=== PATIENT | female | born 1970 | race Caucasian/White ===

== ENCOUNTER 2018-11-10 17:25 | Inpatient (IN) ==
[2018-11-10] MEDS ORDERED: Ipratropium/Albuterol Neb 3 ML IH ONE ×2 (17:43→22:15)
--- NOTE | 2018-11-10 17:47 | Emergency Department Note ---
Disposition Clinical Impression: Urinary tract infection Qualifiers: Urinary tract infection type: acute cystitis Hematuria presence: without hematuria Qualified Code(s): N30.00 - Acute cystitis without hematuria Disposition: Admitted As Inpatient Condition: Good Referrals: Jenna Nettles MD [Primary Care Provider] - Forms: ED Satisfaction Letter, Work/School Release Time of Disposition: 19:55 General Adult HPI - General Chief complaint: ED General Medical Stated complaint: Low blood pressure Time Seen by Provider: 11/10/18 17:40 Source: EMS, other (caregiver) Mode of arrival: EMS Limitations: no limitations Nursing Notes Reviewed: Yes Vital Signs Reviewed: Yes - History of Present Illness HPI Narrative: Female patient with a history of several posterior and MRDD who lives at a longterm presenting to the emergency department from urgent care by EMS for low blood pressure. EMS is unaware why she was taken to urgent care.. It is not obstructive bedside. She states that the patient was at her daycare facility doing her normal job's and noted that she was a little more wobbly than normal is how she put it. They checked her blood pressure was found to be low but she is unaware of the number city to urgent care. The caregiver denies any recent illnesses for the patient. She denies any coughs cold or congestion. She denies any fevers. She states that she does frequently gets ear infections however. Pain Scale: 0 - Related Data Home Medications Medication Instructions Recorded Confirmed Acetaminophen [Tylenol] 650 mg PO Q6HR PRN 08/04/18 11/10/18 Albuterol Neb [Proventil Neb] 2.5 mg IH Q4HR PRN 08/04/18 11/10/18 Alendronate Sodium [Fosamax] 70 mg PO GONZALEZ 08/04/18 11/10/18 Ascorbate Calcium [Vitamin C] 500 mg PO DAILY 08/04/18 11/10/18 Calcium Carbonate/Vitamin D3 1 tab PO BID 08/04/18 11/10/18 [Oyster Shell 250 mg + Vit D Tb] Escitalopram [Lexapro] 10 mg PO DAILY 08/04/18 11/10/18 Ferrous Sulfate [Iron] 325 mg PO TID 08/04/18 11/10/18 Ibuprofen [Motrin] 400 mg PO Q4HR PRN 08/04/18 11/10/18 LORazepam [Ativan] 0.5 mg PO DAILY 08/04/18 11/10/18 Loperamide HCl [Anti-Diarrheal] 2 mg PO PRN PRN 08/04/18 11/10/18 Loratadine [Allergy Relief] 10 mg PO DAILY 08/04/18 11/10/18 Mag Hydrox/Al Hydrox/Simeth 30 ml PO Q6HR PRN 08/04/18 11/10/18 [Maalox] Medroxyprogesterone Acetate 150 mg IM [id number] 08/04/18 11/10/18 [Depo-Provera] Allergies Allergy/AdvReac Type Severity Reaction Status Date / Time clindamycin Allergy Hives Verified 11/10/18 16:46 Review of Systems: As Per HPI Limitations: ROS unobtainable due to patients medical condition (animal care giver was able to supply what is listed in the HPI) Past Medical History - Past Medical History Attestation: Yes The following information was validated with the patient. Source: patient Medical history: Reports: non-contributory, other Surgical history: Reports: no surgical history Psychiatric history: Reports: anxiety, depression SUPERVISING DEPUTY history: Reports: no SUPERVISING DEPUTY history - Social History Smoking Status: Never smoker Smokeless Tobacco Status: No Alcohol use: Reports: none Drug use: Reports: none Physical Exam - General Limitations: other (MRDD Pt) General appearance: alert - Head Head exam: atraumatic, normocephalic, normal inspection - ENT ENT exam: normal exam, TM's normal bilaterally (dull bilaterally, no effusion), normal external ear exam - Neck Neck exam: Present: normal inspection, full ROM, trachea midline - Chest Chest inspection: Present: normal inspection, symmetric chest wall rise. Absent: tenderness - Respiratory Respiratory exam: Present: other (course on the left). Absent: respiratory distress, accessory muscle use - Cardiovascular Cardiovascular exam: Present: regular rate, normal rhythm, normal heart sounds - Abdominal Exam Abdominal exam: Present: soft, Non-Tender. Absent: tenderness (Pt does not grimace on palpation), distention, guarding, rebound, rigidity, organomegaly, Meyer's sign, Rovsing's sign, tenderness at McBurney's Point - Extremities Exam Extremities exam: Present: normal inspection, full ROM. Absent: tenderness, pedal edema - Back Exam Back exam: Present: normal inspection, full ROM. Absent: tenderness - Neurological Exam Neurological exam: Present: alert, other (appears at baseline) - Skin Skin exam: Present: warm, dry, intact, normal color. Absent: rash Course Course Narrative: We did review the course at urgent care. Vitals they are not consistent with her vitals we have here. She was found to be tachycardic in the 130s and she is normal sinus in the rate of 80. They also had a blood pressure of in the 60s systolic over in the 50s diastolic. Her pressure here has been in the 90s systolic. She is maintaining a blood pressure around that area throughout her course. She was found to have a urinary tract infection. No signs of pneumonia on chest x-ray. Due to the patient's complex medical history as she is blind and has MRDD lives at a longterm and was noted to be hypotensive compared to her normal we will admit the patient here for IV antibiotics as well as fluid hydration. We did get basic labs on the patient. We spoke with the caregiver who believes that this is a good plan for the patient. - Consultations Consultation #1: Dr Bryant accepted Pt in stable condition. Time: 20:36 Vital Signs Temperature 98.0 F 11/10/18 17:37 Pulse Rate 85 11/10/18 17:37 Respiratory Rate 17 11/10/18 17:37 Blood Pressure 90/54 11/10/18 17:37 O2 Sat by Pulse Oximetry 97 11/10/18 17:37 Temperature 98.0 F 11/10/18 17:37 Pulse Rate 108 11/10/18 19:45 Respiratory Rate 18 11/10/18 19:45 Blood Pressure 89/63 11/10/18 19:45 O2 Sat by Pulse Oximetry 99 11/10/18 19:45 Oxygen Delivery Oxygen Delivery Room Air Medical Decision Making - Medical Records Medical records reviewed: Yes I reviewed the patient's medical records. - Lab Data Lab results reviewed: Yes I reviewed the patient's lab results. Result diagrams: 11/10/18 19:10 11/10/18 19:10 Lab Results 11/10/18 11/10/18 11/10/18 Range/Units 18:28 19:10 19:10 WBC 27.8 H (4.3-11.1) K/mcL RBC 4.53 (3.82-4.97) M/mcL Hgb 12.8 (11.5-15.4) g/dL Hct 37.6 (35.3-44.9) % MCV 83.0 (83.0-100.0) fL MCH 28.3 (28.0-33.3) pg MCHC 34.0 (31.6-35.5) g/dL RDW 13.4 (11.5-14.5) % Plt Count 112 L (140-400) K/mcL MPV 11.6 (9.4-12.4) fL Seg Neutrophils % 74.0 % Band Neutrophils % 10.0 H (0-4) % Lymphocytes % 8.0 % Monocytes % 6.0 % Myelocytes % 2.0 H (0) % Neutrophils # 23.4 H (1.6-8.9) K/mcL Lymphocytes # 2.2 (0.6-4.6) K/mcL Monocytes # 1.7 H (0.0-1.3) K/mcL Sodium 132 L (136-145) mEq/L Potassium 3.6 (3.5-5.1) mEq/L Chloride 98 (98-107) mEq/L Carbon Dioxide 25 (23-29) mEq/L BUN 19 (6-20) mg/dL Creatinine 0.86 (0.60-1.20) mg/dL Est GFR ( Amer) > 60 (> 60) Est GFR (Non-Af Amer) > 60 (> 60) BUN/Creatinine Ratio 22 (6-26) Glucose 112 H (70-105) mg/dL Calculated Osmolality 277 L (280-300) Lactic Acid (0.5-2.2) mmol/L Calcium 9.3 (8.6-10.3) mg/dL Phosphorus 3.2 (2.7-4.5) mg/dL Magnesium 1.9 (1.6-2.6) mg/dL Total Bilirubin 1.1 H (0.3-1.0) mg/dL Direct Bilirubin 0.4 H (0.0-0.2) mg/dL Indirect Bilirubin 0.7 (0.0-1.2) mg/dL AST 23 (13-39) Units/L ALT 29 (7-52) Units/L Alkaline Phosphatase 94 (34-104) Units/L Troponin I < 0.03 (< 0.04) ng/mL Serum Total Protein 6.4 (6.4-8.9) g/dL Albumin 3.8 (3.5-5.7) g/dL Globulin 2.6 (2.4-3.5) g/dL Albumin/Globulin Ratio 1.5 (1.1-2.2) Urine Color Dark Yellow (Yellow) Urine Clarity Clear (Clear) Urine pH 6.0 (5.0-8.0) pH Units Ur Specific [place] 1.014 (1.010-1.025) Urine Protein 30 H (Neg-Trace) mg/dL Urine Glucose (UA) Normal (Normal) mg/dL Urine Ketones Negative (Negative) mg/dL Urine Blood Negative (Negative) Urine Nitrite Positive A (Negative) Urine Bilirubin Negative (Negative) Urine Urobilinogen Normal (Normal) mg/dL Ur Leukocyte Esterase Small H (Negative) Urine Microscopic RBC 0-3 (0-3) per hpf Urine Microscopic WBC 15-30 H (0-3) per hpf Ur Squamous Epith Cells Few (None-Few) per lpf Urine Bacteria Few (None-Few) per hpf Hyaline Casts Few (None-Few) per lpf Ur Culture Indicated? YES A (NO) 11/10/18 Range/Units 19:10 WBC (4.3-11.1) K/mcL RBC (3.82-4.97) M/mcL Hgb (11.5-15.4) g/dL Hct (35.3-44.9) % MCV (83.0-100.0) fL MCH (28.0-33.3) pg MCHC (31.6-35.5) g/dL RDW (11.5-14.5) % Plt Count (140-400) K/mcL MPV (9.4-12.4) fL Seg Neutrophils % % Band Neutrophils % (0-4) % Lymphocytes % % Monocytes % % Myelocytes % (0) % Neutrophils # (1.6-8.9) K/mcL Lymphocytes # (0.6-4.6) K/mcL Monocytes # (0.0-1.3) K/mcL Sodium (136-145) mEq/L Potassium (3.5-5.1) mEq/L Chloride (98-107) mEq/L Carbon Dioxide (23-29) mEq/L BUN (6-20) mg/dL Creatinine (0.60-1.20) mg/dL Est GFR ( Amer) (> 60) Est GFR (Non-Af Amer) (> 60) BUN/Creatinine Ratio (6-26) Glucose (70-105) mg/dL Calculated Osmolality (280-300) Lactic Acid 1.8 (0.5-2.2) mmol/L Calcium (8.6-10.3) mg/dL Phosphorus (2.7-4.5) mg/dL Magnesium (1.6-2.6) mg/dL Total Bilirubin (0.3-1.0) mg/dL Direct Bilirubin (0.0-0.2) mg/dL Indirect Bilirubin (0.0-1.2) mg/dL AST (13-39) Units/L ALT (7-52) Units/L Alkaline Phosphatase (34-104) Units/L Troponin I (< 0.04) ng/mL Serum Total Protein (6.4-8.9) g/dL Albumin (3.5-5.7) g/dL Globulin (2.4-3.5) g/dL Albumin/Globulin Ratio (1.1-2.2) Urine Color (Yellow) Urine Clarity (Clear) Urine pH (5.0-8.0) pH Units Ur Specific [place] (1.010-1.025) Urine Protein (Neg-Trace) mg/dL Urine Glucose (UA) (Normal) mg/dL Urine Ketones (Negative) mg/dL Urine Blood (Negative) Urine Nitrite (Negative) Urine Bilirubin (Negative) Urine Urobilinogen (Normal) mg/dL Ur Leukocyte Esterase (Negative) Urine Microscopic RBC (0-3) per hpf Urine Microscopic WBC (0-3) per hpf Ur Squamous Epith Cells (None-Few) per lpf Urine Bacteria (None-Few) per hpf Hyaline Casts (None-Few) per lpf Ur Culture Indicated? (NO) - Radiology Data Radiology results reviewed: Yes I reviewed the patient's radiology results. Chest X-Ray 11/10/18 17:42 IMPRESSION: Negative low lung volume portable chest radiograph. D/ / Warren Ramirez MD / Warren Ramirez MD Interpreting Provider: Warren Ramirez MD Attestation Statement - Attestation Attestation: Resident Attestation: I examined this patient and my medical decision making was reviewed with the Resident Physician. I agree with the documented findings, disposition and treatment plan as described except to the extent set forth below. We independently had [id number] contact with the patient. Patient presenting for evaluation of low blood pressure. Taken today per random blood pressure check found the low. His taken to urgent care and found to have a heart rate of 136. Patient was referred here for further evaluation. Patient was found to be with a heart rate in the 80s but a blood pressure in the mid 80s. The patient otherwise looks well but she is MRDD with blindness and unable to communicate. Chest with mild rhonchi, regular rhythm, abdomen soft nontender to palpation. Initial chest x-ray and urinalysis were sent. Concern for UTI. Patient's repeat blood pressures have been in the low 90s and high 80s. Concern for possible sepsis. Blood work will be obtained. Antibiotics will be given and the patient will be admitted for further management.
[2018-11-10 18:50] LABS: Bilirubin,Urine Negative (Negative); Blood,Urine Negative (Negative); Clarity,Urine Clear (Clear); Color,Urine Dark Yellow (Yellow); Glucose,Urine (UA) Normal (Normal); Ketones,Urine Negative (Negative); Leukocyte Esterase,Urine Small (Negative); Nitrite,Urine Positive (Negative); Protein,Urine 30 mg/dL (Neg-Trace); Specific Gravity,Urine 1.014 (1.010-1.025); Urobilinogen,Urine Normal (Normal)
[2018-11-10 18:52] LABS: Bacteria,Urine Few per hpf (None-Few); Hyaline Casts,Urine Few per lpf (None-Few); RBC,Urine 0-3 per hpf (0-3); Squamous Epithelial Cell,Urine Few per lpf (None-Few); WBC,Urine 15-30 per hpf (0-3)
[2018-11-10] MEDS ORDERED: 0.9 % Sodium Chloride 1,000 ML IVC ONE (18:56)
[2018-11-10] MEDS ORDERED: cefTRIAXone 1,000 MG in Water for inj. (sterile) 20 ML 10 ML IVP ONE (18:56)
[2018-11-10 19:27] LABS: Mean Corpuscular Hemoglobin 28.3 pg (28.0-33.3); Platelet Count 112 K/mcL (140-400)
[2018-11-10 19:29] LABS: Hematocrit 37.6 % (35.3-44.9); Hemoglobin 12.8 g/dL (11.5-15.4); Mean Platelet Volume 11.6 fL (9.4-12.4); Red Blood Count 4.53 M/mcL (3.82-4.97); Red Cell Distribution Width 13.4 % (11.5-14.5)
[2018-11-10 19:49] LABS: Troponin I < 0.03 ng/mL (< 0.04)
[2018-11-10 19:57] LABS: Alanine Aminotransferase 29 Units/L (7-52); Albumin 3.8 g/dL (3.5-5.7); Albumin/Globulin Ratio 1.5 (1.1-2.2); Alkaline Phosphatase 94 Units/L (34-104); Aspartate Amino Transferase 23 Units/L (13-39); BUN/Creatinine Ratio 22 (6-26); Bilirubin,Direct 0.4 mg/dL (0.0-0.2); Bilirubin,Indirect 0.7 mg/dL (0.0-1.2); Bilirubin,Total 1.1 mg/dL (0.3-1.0); Blood Urea Nitrogen 19 mg/dL (6-20); Calcium 9.3 mg/dL (8.6-10.3); Carbon Dioxide 25 mEq/L (23-29); Chloride 98 mEq/L (98-107); Globulin 2.6 g/dL (2.4-3.5); Glucose 112 mg/dL (70-105); Magnesium 1.9 mg/dL (1.6-2.6); Osmolality,Calculated 277 (280-300); Phosphorous 3.2 mg/dL (2.7-4.5); Potassium 3.6 mEq/L (3.5-5.1); Sodium 132 mEq/L (136-145); Total Protein 6.4 g/dL (6.4-8.9); eGFR For Non-African Americans > 60 (> 60)
[2018-11-10 20:00] LABS: Lymphocytes # 2.2 K/mcL (0.6-4.6); Monocytes # 1.7 K/mcL (0.0-1.3); Neutrophils # 23.4 K/mcL (1.6-8.9)
[2018-11-10] MEDS ORDERED: Piperacillin/Tazobactam 3.375 GM in 0.9 % Sodium Chloride Mini Bag 100 ML IVPB ONE (22:09)
[2018-11-10] MEDS ORDERED: methylPREDNISolone 125 MG/2 ML VIAL IVP STA (22:15)
[2018-11-10] MEDS ORDERED: Ipratropium/Albuterol Neb 3 ML ONE (22:19)
[2018-11-10] MEDS ORDERED: Acetaminophen 650 MG RECTAL SUPP RC ONE (22:24)
[2018-11-10] MEDS: 0.9 % Sodium Chloride 1,000 ML IVC SCH (23:12)
[2018-11-11] MEDS ORDERED: Naloxone 0.4 MG/ML INJ IVP PRN (06:17)
[2018-11-11] MEDS ORDERED: Acetaminophen 325 MG TABLET PO PRN (06:17)
[2018-11-11] MEDS ORDERED: Albuterol 2.5 MG/3 ML NEBULIZER IH PRN (06:19)
--- NOTE | 2018-11-11 07:24 | Internal Med History&Physical ---
Date of Encounter: 11/11/18 Time of Encounter: 05:00 Internal Medicine - H&P: HPI Chief complaint: UTI, HCAP Admitted From: Emergency Dept Plans for Post Hospital Care: Home History of present illness: Ms. Kent is a 48 year old female Patient presented to the ER from an urgent care then transported to the ER for concerns of low blood pressure. Patient has history of developmental delay, blindness and cerebral palsy and does not verbally communicate. History obtained from prior ER records. Initially she presented with a neonatal intensive care nurse, who noted that she was a little more wobbly than normal. They had checked her blood pressure and it was found to be low. There is no known recent illness, fevers but patient has a history of ear infections. In the ER she was found ot have a leukocytosis of 27.8. Initial vitals were stable, with blood pressure of 90/54 and patient was afebrile. CMP showed a slightly low sodium of 132, and mildly elevated total bilirubin of 1.1. Urinalysis showed positive nitrite and small leukocyte esterase. Chest x-ray was negative for acute focal infiltrate. Blood cultures and urine cultures were obtained, and she was started on ceftriaxone, zosyn and vancomycin due to possible concerns for HCAP/aspiration. Patient's child day care center worker agreed with plan. Upon my evaluation, patient is sitting up in the hospital bed, in no acute distress. Does not answer questions nor follow commands. Bedside swallow exam demonstrated coughing with thin liquids. ROS and family history unable to be obtained due to patient condition. Past Med Surg Social Fam HX - Past Medical History Medical history: non-contributory, other Additional medical history: Cerebral Palsy, Blind, MRDD, Psychiatric history: anxiety, depression - Past Surgical History Surgical History: no surgical history - Social History Smoking Status: Never smoker Smokeless Tobacco Status: No Alcohol use: none Drug use: none Internal Medicine - H&P: Meds Acetaminophen [Tylenol] 650 mg PO Q6HR PRN 08/04/18 [History] Albuterol Neb [Proventil Neb] 2.5 mg IH Q4HR PRN 08/04/18 [History] Alendronate Sodium [Fosamax] 70 mg PO GONZALEZ 08/04/18 [History] Ascorbate Calcium [Vitamin C] 500 mg PO DAILY 08/04/18 [History] Calcium Carbonate/Vitamin D3 [Oyster Shell 250 mg + Vit D Tb] 1 tab PO BID 08/04/18 [History] Escitalopram [Lexapro] 10 mg PO DAILY 08/04/18 [History] Ferrous Sulfate [Iron] 325 mg PO TID 08/04/18 [History] Ibuprofen [Motrin] 400 mg PO Q4HR PRN 08/04/18 [History] LORazepam [Ativan] 0.5 mg PO DAILY 08/04/18 [History] Loperamide HCl [Anti-Diarrheal] 4 mg PO PRN PRN 08/04/18 [History] Loratadine [Allergy Relief] 10 mg PO DAILY 08/04/18 [History] Mag Hydrox/Al Hydrox/Simeth [Maalox] 30 ml PO Q6HR PRN 08/04/18 [History] Medroxyprogesterone Acetate [Depo-Provera] 150 mg IM [id number] 08/04/18 [History] Ascorbic Acid [Vitamin C] 500 mg PO DAILY 11/10/18 [History] Desitin (Zinc Oxide) [Desitin Diaper Rash 40 % Paste] 1 appl TP Q1H PRN 11/10/18 [History] Eyelid Cleanser Combination #3 [Ocusoft Lid Scrub Plus] 1 each TP BID 11/10/18 [History] Hydrocortisone [Procto-Med Hc] 30 gm TP BID PRN 11/10/18 [History] Magnesium Hydroxide [Milk of Magnesia] 30 ml PO DAILY 11/10/18 [History] OxyCODONE/APAP 5/325 [Percocet 5/325 MG] 1 each PO Q6HR PRN 11/10/18 [History] Allergy/AdvReac Type Severity Reaction Status Date / Time clindamycin Allergy Hives Verified 11/10/18 16:46 ROS unobtainable: due to mental status All Systems PM: A 10-system review of systems was performed and is negative for pertinent findings except as documented above in the HPI. - Constitutional Vitals: Temp Pulse Resp BP Pulse Ox 97.6 F 78 22 100/65 100 11/11/18 03:15 11/11/18 03:15 11/11/18 03:15 11/11/18 03:15 11/11/18 03:15 General appearance: Present: pleasant, no acute distress. Absent: cooperative, answers questions appropriately Exam: - - Head Head exam: Present: normal inspection - Eye Additional comments: Blind - Respiratory Respiratory exam: Present: rales. Absent: chest wall tenderness, respiratory distress, rhonchi, wheezes Additional comments: Slight crackles left worse than right - Cardiovascular Cardiovascular exam: Present: RRR. Absent: diastolic murmur, systolic murmur - GI/Abdominal GI/Abdominal exam: Present: normal bowel sounds, soft. Absent: tenderness - Extremities Exam Extremities exam: Present: warm, radial pulses palpable and symmetrical. Absent: tenderness - Neurological Exam Additional comments: Nonverbal, difficult to assess - Skin Skin exam: Present: dry, normal color, warm Internal Med - H&P Results - Labs CBC & Chem 7: 11/10/18 19:10 11/10/18 19:10 Labs: Short CBC 11/10/18 Range/Units 19:10 WBC 27.8 H (4.3-11.1) K/mcL Hgb 12.8 (11.5-15.4) g/dL Hct 37.6 (35.3-44.9) % Plt Count 112 L (140-400) K/mcL Neutrophils # 23.4 H (1.6-8.9) K/mcL BMP 11/10/18 19:10 Sodium 132 L Potassium 3.6 Chloride 98 Carbon Dioxide 25 BUN 19 Creatinine 0.86 Glucose 112 H Calcium 9.3 Cardiac Enzymes 11/10/18 Range/Units 19:10 Troponin I < 0.03 (< 0.04) ng/mL Liver Function 11/10/18 Range/Units 19:10 Total Bilirubin 1.1 H (0.3-1.0) mg/dL Direct Bilirubin 0.4 H (0.0-0.2) mg/dL AST 23 (13-39) Units/L ALT 29 (7-52) Units/L Alkaline Phosphatase 94 (34-104) Units/L Albumin 3.8 (3.5-5.7) g/dL Urine 11/10/18 Range/Units 18:28 Urine Color Dark Yellow (Yellow) Urine Clarity Clear (Clear) Urine pH 6.0 (5.0-8.0) pH Units Ur Specific [place] 1.014 (1.010-1.025) Urine Protein 30 H (Neg-Trace) mg/dL Urine Glucose (UA) Normal (Normal) mg/dL - Impressions ITS Impressions Chest X-Ray 11/10/18 17:42 IMPRESSION: Negative low lung volume portable chest radiograph. D/ / Warren Ramirez MD / Warren Ramirez MD Interpreting Provider: Warren Ramirez MD Chest X-Ray 11/10/18 22:23 IMPRESSION: No acute abnormality detected. D/ / Warren Ramirez MD / Warren Ramirez MD Interpreting Provider: Warren Ramirez MD - Assessment and plan (1) Sepsis Current Visit: No Status: Acute Assessment and plan: Resolved. Patient did initially meet sepsis criteria with elevated temperature of 100.6, heart rate of 130, and respiratory rate of 26. She did not have an elevated lactic acid however. Blood cultures were drawn, and she was started on antibiotics for possible pneumonia and UTI. Continue antibiotics Follow up blood and urine cultures Continue to monitor for worsening signs of infection. Qualifiers: Sepsis type: sepsis due to unspecified organism Qualified Code(s): A41.9 - Sepsis, unspecified organism (2) Urinary tract infection Current Visit: Yes Status: Acute Assessment and plan: As evidenced by urinalysis. Started on ceftriaxone in the ER, switched to levaquin, zosyn and vanco for broad coverage. Follow up urine culture Continue antibiotics. Qualifiers: Urinary tract infection type: acute cystitis Hematuria presence: without hematuria Qualified Code(s): N30.00 - Acute cystitis without hematuria (3) Pneumonia Current Visit: Yes Status: Acute Assessment and plan: Chest x-ray negative, however on exam and with failing bedside swallow, concerns for aspiration or HCAP are present. Blood cultures drawn. Continue antibiotics as above Follow up cultures. Qualifiers: Pneumonia type: aspiration pneumonia Aspiration pneumonia type: unspecified Lung location: unspecified part of lung Qualified Code(s): J69.0 - Pneumonitis due to inhalation of food and vomit (4) Cough Current Visit: Yes Status: Acute Assessment and plan: Cough with thin liquids, despite documentation that patient normally tolerates this at her alf. Speech and swallow therapy in AM NPO until evaluation. (5) Tachycardia Current Visit: No Status: Acute Assessment and plan: Resolved, likely secondary to sepsis. Patient improved with IV fluids. (6) DVT prophylaxis Current Visit: Yes Status: Acute Assessment and plan: SCDs - Time Spent With Patient Total time spent is greater than 50% in coordination of care (as documented) at patient's floor/unit and/or counseling patient: Greater than 35 minutes
[2018-11-11] MEDS ORDERED: Aminoglycoside Consult 1 EACH MC ONE (07:37)
[2018-11-11] MEDS ORDERED: Ibuprofen 200 MG TABLET PO PRN (08:04)
[2018-11-11] MEDS ORDERED: Hydrocortisone Rectal 2.5% CRM 28 GM TUBE RC PRN (08:04)
[2018-11-11] MEDS: Levofloxacin 750 MG/150 ML 750 MG/150 ML BAG IVPB SCH (09:20)
[2018-11-11] MEDS: Piperacillin/Tazobactam 3.375 GM in 0.9 % Sodium Chloride Mini Bag 100 ML IVPB SCH ×3 (09:21→23:51)
[2018-11-11] MEDS: *HR* LORazepam 0.5 MG TABLET PO SCH (09:29)
[2018-11-11] MEDS: 0.9 % Sodium Chloride 1,000 ML IVC SCH (09:31)
[2018-11-11] MEDS: Ipratropium/Albuterol Neb 3 ML IH SCH ×3 (11:34→22:49)
[2018-11-11] MEDS: predniSONE 20 MG TABLET PO SCH (11:46)
[2018-11-11] MEDS: MOM Conc 10 ML UD.LIQ PO SCH (11:46)
[2018-11-11 12:35] LABS: Hematocrit 33.6 % (35.3-44.9); Hemoglobin 11.5 g/dL (11.5-15.4); Immature Platelets 4.9 % (1.1-6.1); Mean Corpuscular HGB Conc 34.2 g/dL (31.6-35.5); Mean Corpuscular Hemoglobin 28.3 pg (28.0-33.3); Mean Corpuscular Volume 82.8 fL (83.0-100.0); Mean Platelet Volume 11.9 fL (9.4-12.4); Red Blood Count 4.06 M/mcL (3.82-4.97); Red Cell Distribution Width 13.7 % (11.5-14.5)
[2018-11-11 12:51] LABS: Alanine Aminotransferase 22 Units/L (7-52); Albumin 3.5 g/dL (3.5-5.7); Albumin/Globulin Ratio 1.5 (1.1-2.2); Alkaline Phosphatase 86 Units/L (34-104); Aspartate Amino Transferase 22 Units/L (13-39); BUN/Creatinine Ratio 17 (6-26); Bilirubin,Total 0.5 mg/dL (0.3-1.0); Blood Urea Nitrogen 14 mg/dL (6-20); Calcium 8.5 mg/dL (8.6-10.3); Carbon Dioxide 18 mEq/L (23-29); Chloride 111 mEq/L (98-107); Globulin 2.4 g/dL (2.4-3.5); Glucose 112 mg/dL (70-105); Osmolality,Calculated 287 (280-300); Potassium 3.7 mEq/L (3.5-5.1); Sodium 138 mEq/L (136-145); Total Protein 5.9 g/dL (6.4-8.9); eGFR For Non-African Americans > 60 (> 60)
[2018-11-11 13:05] LABS: Acinetobacter baumannii by PCR Not Detected (Not Detect); Candida albicans by PCR Not Detected (Not Detect); Candida glabrata by PCR Not Detected (Not Detect); Candida krusei by PCR Not Detected (Not Detect); Candida parapsilosis by PCR Not Detected (Not Detect); Candida tropicalis by PCR Not Detected (Not Detect); Enterobacter cloacae Cmplx PCR Not Detected (Not Detect); Enterobacteriaceae by PCR DETECTED (Not Detect); Enterococcus by PCR Not Detected (Not Detect); Escherichia coli by PCR DETECTED (Not Detect); Klebsiella oxytoca by PCR Not Detected (Not Detect); Klebsiella pneumoniae by PCR Not Detected (Not Detect); Proteus by PCR Not Detected (Not Detect); Pseudomonas aeruginosa by PCR Not Detected (Not Detect); Serratia marcescens by PCR Not Detected (Not Detect); Staphylococcus aureus by PCR Not Detected (Not Detect); Staphylococcus by PCR Not Detected (Not Detect); Streptococcus agalactiae(B)PCR Not Detected (Not Detect); Streptococcus by PCR Not Detected (Not Detect); Streptococcus pneumoniae PCR Not Detected (Not Detect); Streptococcus pyogenes (A) PCR Not Detected (Not Detect); blaKPC Carbapenem-Resist Gene Not Detected (Not Detect); vanA/B Vancomycin-Resist Genes Not Detected (Not Detect)
--- NOTE | 2018-11-11 15:35 | Event Note ---
Date of Encounter: 11/11/18 Time of Encounter: 15:32 S: pt restless but awake O: vitals significantly improved (afebrile, HR and RR normal now, SBP 110s) UA positive, UCx pending. BCx now growing gram negative analia. A: clinically improving gram negative bacteremia UTI severe sepsis possible aspiration pneumonia P: d/c vanc continue empiric levaquin and zosyn d/c tele and can xfer to med/surg speech eval rec'd MBS, will f/u recs
[2018-11-12] MEDS ORDERED: Melatonin 3 MG TABLET PO PRN (03:11)
[2018-11-12] MEDS: Ipratropium/Albuterol Neb 3 ML IH SCH ×4 (04:50→22:22)
[2018-11-12] MEDS: *HR* Enoxaparin 40 MG/0.4 ML SYRINGE SQ SCH (06:37)
[2018-11-12 07:53] LABS: Hematocrit 35.5 % (35.3-44.9); Hemoglobin 12.2 g/dL (11.5-15.4); Mean Corpuscular HGB Conc 34.4 g/dL (31.6-35.5); Mean Corpuscular Hemoglobin 28.2 pg (28.0-33.3); Mean Platelet Volume 11.8 fL (9.4-12.4); Platelet Count 105 K/mcL (140-400); Red Blood Count 4.33 M/mcL (3.82-4.97); Red Cell Distribution Width 13.6 % (11.5-14.5)
[2018-11-12] MEDS: predniSONE 20 MG TABLET PO SCH (08:12)
[2018-11-12] MEDS: *HR* LORazepam 0.5 MG TABLET PO SCH (08:13)
[2018-11-12] MEDS: Piperacillin/Tazobactam 3.375 GM in 0.9 % Sodium Chloride Mini Bag 100 ML IVPB SCH ×2 (08:13→16:28)
[2018-11-12] MEDS: MOM Conc 10 ML UD.LIQ PO SCH (08:14)
[2018-11-12] MEDS: Levofloxacin 750 MG/150 ML 750 MG/150 ML BAG IVPB SCH (08:14)
[2018-11-12 08:20] LABS: BUN/Creatinine Ratio 19 (6-26); Blood Urea Nitrogen 19 mg/dL (6-20); Calcium 8.7 mg/dL (8.6-10.3); Carbon Dioxide 23 mEq/L (23-29); Chloride 109 mEq/L (98-107); Glucose 87 mg/dL (70-105); Magnesium 2.2 mg/dL (1.6-2.6); Osmolality,Calculated 290 (280-300); Potassium 3.4 mEq/L (3.5-5.1); Sodium 139 mEq/L (136-145); eGFR For Non-African Americans 60 (> 60)
--- NOTE | 2018-11-12 13:42 | Internal Med Progress Note ---
Hospitalist Progress Note - Encounter Date of Encounter: 11/12/18 Time of Encounter: 13:40 - Subjective Interval History: Pt unable to verbalize problems/complaints but seems more pleasant and calm today, playing with her toys happily. - Exam Vitals: Temp Pulse Resp BP Pulse Ox 98.1 F 101 18 107/71 96 11/12/18 11:58 11/12/18 11:58 11/12/18 11:58 11/12/18 11:58 11/12/18 11:58 Exam: General: NAD, eyes held closed, resting in bed calmly playing with toys Thoracic: Normal breath sounds b/l, no wheezing or crackles, no rhonchi as heard in LLL yesterday Cardio: Normal S1 and S2, regular rate and rhythm Abdomen: Soft, nontender Extremities: Warm, well perfused. Neuro: Awake, moving all extremities purposefully - Summary of Assessment and Plan Summary of Assessment and Plan: Flores Kent is a 48 F w hx CP, MRDD, blind, who p/w agitation and fever with dirty UA and tachycardia and leukocytosis concerning for UTI causing sepsis. Gram negative bacteremia: 2/2 UTI below - BCx pending, f/u spec and sens - empiric Zosyn and levaquin UTI: - f/u UCx results - abx as above Severe sepsis: resolved Atelectasis: lungs clear today, initial suspicion for aspiration pna but unlikely, also CXR clear Pharyngeal Dysphagia: mech soft and nectar thick liquids - Time Spent with Patient Total time spent is greater than 50% in coordination of care (as documented) at patient's floor/unit and/or counseling patient: less than 15 minutes Internal Medicine: Result - Labs CBC & Chem 7: 11/12/18 07:35 11/12/18 07:35 Labs: Short CBC 11/12/18 Range/Units 07:35 WBC 19.1 H (4.3-11.1) K/mcL Hgb 12.2 (11.5-15.4) g/dL Hct 35.5 (35.3-44.9) % Plt Count 105 L (140-400) K/mcL BMP 11/12/18 07:35 Sodium 139 Potassium 3.4 L Chloride 109 H Carbon Dioxide 23 BUN 19 Creatinine 0.99 Glucose 87 Calcium 8.7 Consult Discharge Plan - Plan Referrals: Farinet,Jenna L, MD [Primary Care Provider] -
--- NOTE | 2018-11-12 21:24 | Electrocardiograph Report ---
[place] [id number] Test Date: 2018-11-10 Pat Name: Flores Kent Department: [id number] Room: 2A32 Gender: F Electrotherapist: : 1970 Requested By: Anum Pardo Order Number: [id number] Reading MD: Debo Wilcox Measurements Intervals [place] Rate: 143 P: 43 WI: 120 QRS: 55 QRSD: 93 T: -44 QT: 322 QTc: 497 Interpretive Statements Sinus tachycardia Artifact limits interpretation Electronically Signed On 11-12-2018 21:23:27 EST by Debo Wilcox
[2018-11-13] MEDS: Piperacillin/Tazobactam 3.375 GM in 0.9 % Sodium Chloride Mini Bag 100 ML IVPB SCH ×2 (00:23→10:18)
[2018-11-13] MEDS: Ipratropium/Albuterol Neb 3 ML IH SCH ×2 (04:41→10:18)
[2018-11-13] MEDS: *HR* Enoxaparin 40 MG/0.4 ML SYRINGE SQ SCH (06:02)
[2018-11-13 06:48] LABS: Hemoglobin 12.3 g/dL (11.5-15.4); Mean Corpuscular HGB Conc 34.2 g/dL (31.6-35.5); Mean Corpuscular Hemoglobin 28.2 pg (28.0-33.3); Mean Corpuscular Volume 82.6 fL (83.0-100.0); Mean Platelet Volume 11.5 fL (9.4-12.4); Platelet Count 126 K/mcL (140-400); Red Blood Count 4.36 M/mcL (3.82-4.97)
[2018-11-13 07:05] LABS: BUN/Creatinine Ratio 18 (6-26); Blood Urea Nitrogen 16 mg/dL (6-20); Calcium 8.9 mg/dL (8.6-10.3); Carbon Dioxide 22 mEq/L (23-29); Chloride 111 mEq/L (98-107); Glucose 102 mg/dL (70-105); Osmolality,Calculated 293 (280-300); Potassium 3.1 mEq/L (3.5-5.1); Sodium 141 mEq/L (136-145); eGFR For Non-African Americans > 60 (> 60)
[2018-11-13] MEDS: Levofloxacin 750 MG/150 ML 750 MG/150 ML BAG IVPB SCH (09:08)
[2018-11-13] MEDS: predniSONE 20 MG TABLET PO SCH (09:09)
[2018-11-13] MEDS: *HR* LORazepam 0.5 MG TABLET PO SCH (09:09)
[2018-11-13] MEDS: MOM Conc 10 ML UD.LIQ PO SCH (09:09)
[2018-11-13 11:36] VITALS: BP 127/83
--- NOTE | 2018-11-13 11:38 | Discharge Summary ---
- NOTES TO OUTPATIENT PROVIDER Notes to Outpatient Provider: UTI and bacteremia, sensitive to Levaquin Orders not resulted at time of discharge: Pending orders 11/10/18 19:10 Culture,Blood [BC] Stat Date of Encounter: 11/13/18 Time of Encounter: 11:35 - Discharge Diagnosis (1) E coli bacteremia Priority: Secondary Status: Acute (2) E. coli UTI Priority: Primary Status: Acute Hospital course: Dear doctors, I recently had the opportunity to care for this patient during their hospital stay at [facility]. Flores Kent is a 48 F w hx CP, DD, blind. The patient presented at the time of admission from [facility] with agitation and foul smelling urine. She was noted to be septic. She improved with abx and fluids. Her urine and blood cultures grew E coli, and she was eventually narrowed to Levaquin. Diagnoses: E coli UTI and bacteremia, sepsis Follow up: PCP 1 week Tests pending: none Med changes: new Levaquin 750 daily, last dose 11/19/2018 Mental status: awake, nonverbal Code status: agriculture teacher spent on discharge: 25 minutes It has been my pleasure participating in this patient's care. Please contact me with any questions or concerns regarding their hospital stay. Sincerely, Abiodun Zurita MD - Time Spent with Patient Total time spent providing and/or coordinating discharge services: - Discharge Medications Prescriptions: levoFLOXacin [Levaquin] 750 mg PO DAILY #6 tablet Home Medications: Acetaminophen [Tylenol] 650 mg GTUBE Q4H PRN 08/04/18 [History] Albuterol Neb [Proventil Neb] 2.5 mg IH Q4-6H PRN 08/04/18 [History] Alendronate Sodium [Fosamax] 70 mg PO GONZALEZ 08/04/18 [History] Escitalopram [Lexapro] 10 mg PO DAILY 08/04/18 [History] Ferrous Sulfate [Iron] 325 mg PO TID 08/04/18 [History] Ibuprofen [Motrin] 400 mg GTUBE Q4H PRN 08/04/18 [History] LORazepam [Ativan] 0.5 mg PO DAILY 08/04/18 [History] Loperamide HCl [Anti-Diarrheal] 4 mg PO PRN PRN 08/04/18 [History] Loratadine [Allergy Relief] 10 mg PO DAILY 08/04/18 [History] Mag Hydrox/Al Hydrox/Simeth [Maalox] 30 ml GTUBE Q4H PRN 08/04/18 [History] Medroxyprogesterone Acetate [Depo-Provera] 150 mg IM [id number] 08/04/18 [History] Ascorbic Acid [Vitamin C] 500 mg PO DAILY 11/10/18 [History] Magnesium Hydroxide [Milk of Magnesia] 30 ml GTUBE PRN PRN 11/10/18 [History] Calcium Carbonate/Vitamin D3 [Oyster Shell Calcium-Vit D Tab] 1 tab PO BID 11/12/18 [History] Desitin (Zinc Oxide) [Desitin] 1 appl TP DAILY PRN 11/12/18 [History] Emollient Combination No.108 [Lubriskin] 1 appl TP DAILY 11/12/18 [History] Eyelid Cleanser Combination #3 [Ocusoft Lid Scrub Plus] 1 pad TP BID 11/12/18 [History] Hydrocortisone [Procto-Med Hc] 1 appl TP BID PRN 11/12/18 [History] Tolnaftate [Anti-Fungal] 1 appl TP BID PRN 11/12/18 [History] levoFLOXacin [Levaquin] 750 mg PO DAILY #6 tablet 11/13/18 [Rx] Allergies/Adverse Reactions: Allergy/AdvReac Type Severity Reaction Status Date / Time clindamycin Allergy Hives Verified 11/10/18 16:46 Date of admission: 11/11/18 10:07 Primary care physician: Jenna Nettles Consults: 11/11/18 06:19 Consult to Nurse Navigator [CONS] Routine Comment: 11/11/18 15:59 Consult to Nurse Navigator [CONS] Routine Comment: Pneumonia - Constitutional Vitals: Temp Pulse Resp BP Pulse Ox 98.1 F 101 18 127/75 100 11/13/18 08:48 11/13/18 08:48 11/13/18 10:20 11/13/18 08:48 11/13/18 10:20 General appearance: Present: pleasant, no acute distress. Absent: cooperative, answers questions appropriately Exam: General: NAD, eyes held closed, resting in bed calmly playing with toys Thoracic: Normal breath sounds b/l, no wheezing or crackles Cardio: Normal S1 and S2, regular rate and rhythm Abdomen: Soft, nontender Extremities: Warm, well perfused. Neuro: Awake, moving all extremities purposefully - Patient Status Disposition: Transfer Other Condition: Fair Overall status at discharge: patient is back to baseline - Discharge Instructions Follow Up With: Jenna Nettles MD [Primary Care Provider] - 11/23/18 3:15 pm (Juana Lee CNP) - Diet and Activity Activity: resume usual activities as tolerated Diet: advance to your usual diet
[2018-11-14] MEDS ORDERED: Levofloxacin 750 MG/150 ML 750 MG/150 ML BAG IVPB SCH (07:00)
[2018-11-14] MEDS ORDERED: levoFLOXacin 750 MG TABLET PO SCH (09:00)
== END 2018-11-13 12:38 | disposition other institution (70) | DRG 871 ==
LOC: EMEROOARM 17:25 → 2SOUTHHOLD 17:25 → 2NNU 11-11 02:17 → SUATTDRO 11-11 02:17 → INTOOBSV 11-11 02:17 → 2NNU 11-11 02:49 → 2ANU 11-12 09:45
PROVIDERS: ADMIT Family Medicine; ATTEND Internal Medicine